=== PATIENT | female | born 1995 | race Caucasian/White ===

== ENCOUNTER 2018-02-23 11:27 | Emergency (ER) | payer OTHER ==
[~2018-02-23] VITALS: Ht 157.5 cm; Wt 72.6 kg
[2018-02-23] MEDS ORDERED: CLARITIN5 MG/5 ML (12:09)
== END 2018-02-23 15:09 | disposition home or self-care (01) ==
LOC: ER 11:27
DX: B34.9 Viral infection, unspecified (principal)

== ENCOUNTER 2018-03-25 18:07 | Emergency (ER) | payer OTHER ==
[~2018-03-25] VITALS: Ht 157.5 cm; Wt 72.6 kg
[~2018-03-25 18:07] MED LIST: CLARITIN5 MG/5 ML
[2018-03-25] MEDS ORDERED: BENADRYL ALLERG25 MG (18:29)
== END 2018-03-25 18:58 | disposition home or self-care (01) ==
LOC: ER 18:07
DX: R51 Headache (principal); J32.8 Other chronic sinusitis

== ENCOUNTER 2019-02-20 11:43 | Emergency (ER) | payer OTHER ==
[~2019-02-20] VITALS: Ht 157.5 cm; Wt 72.6 kg
[~2019-02-20 11:43] MED LIST changes: +BENADRYL ALLERG25 MG
== END 2019-02-20 18:43 | disposition home or self-care (01) ==
LOC: ER 11:43
DX: N93.8 Other specified abnormal uterine and vaginal bleeding (principal)

== ENCOUNTER 2020-06-29 21:50 | Emergency (ER) | payer OTHER ==
[~2020-06-29] VITALS: Ht 157.5 cm; Wt 77.1 kg
[2020-06-29] MEDS ORDERED: CLARITIN10 M1 (21:59)
== END 2020-06-29 23:00 | disposition home or self-care (01) ==
LOC: ER 21:50
DX: R53.1 Weakness (principal)

== ENCOUNTER 2021-11-25 15:50 | Emergency (ER) | payer OTHER ==
[~2021-11-25] VITALS: Ht 157.5 cm; Wt 81.6 kg
[~2021-11-25 15:50] MED LIST changes: +CLARITIN10 M1
== END 2021-11-25 19:56 | disposition home or self-care (01) ==
LOC: ER 15:50
DX: B34.9 Viral infection, unspecified (principal); Z20.822 Contact with and (suspected) exposure to COVID-19

== ENCOUNTER 2022-04-25 12:41 | Emergency (ER) | payer OTHER ==
[~2022-04-25] VITALS: Ht 157.5 cm; Wt 77.1 kg
== END 2022-04-25 17:49 | disposition home or self-care (01) ==
LOC: ER 12:41
DX: L02.424 Furuncle of left upper limb (principal)